=== PATIENT | male | born 1975 | race Caucasian/White ===

== ENCOUNTER 2022-03-15 03:58 | Emergency (ER) | payer SELFPAY ==
[~2022-03-15] VITALS: Ht 167.6 cm; Wt 59.0 kg
--- NOTE | 2022-03-15 04:04 | NUR ---
BIBS C/O RECTAL PAIN S/P HEMORRHOID REMOVAL THURSDAY. PATIENT ALERT AND ORIENTED X3. AMBULATORY WITH NON LABORED BREATHING IN BED 04 IN GOWN AWAITING MD CORTES.
[2022-03-15] MEDS ORDERED: HYDROCODONE/APAP 5/325MG TABLET ONE (04:12)
[2022-03-15] MEDS ORDERED: HYDR-4275 PO (04:14)
--- NOTE | 2022-03-15 04:20 | NUR ---
Patient discharged to home in stable condition. Written and verbal after care instructions given. Patient verbalizes understanding of instruction.
[2022-03-15 04:21] VITALS: BP 138/87
[2022-03-15] MEDS ORDERED: HYDROCODONE/APAP 5/325MG TABLET PO ONE (04:30)
== END 2022-03-15 04:21 | disposition home or self-care (01) ==
LOC: ER 04:01
DX: G89.18 Other acute postprocedural pain (principal); K62.89 Other specified diseases of anus and rectum; Z60.2 Problems related to living alone